=== PATIENT | male | born 1960 | race Caucasian/White ===

== ENCOUNTER 2019-07-24 12:21 | Emergency (ER) | payer OTHER ==
[~2019-07-24] VITALS: Ht 188 cm; Wt 106.1 kg
[2019-07-24 12:27] VITALS: Ht 188 cm; Wt 106.1 kg
[2019-07-24 13:28] LABS: BASOPHIL % 0.4 % (0-2); PLATELET COUNT 289 x10^3mcL (130-400); RED CELL DISTRIBUTION WIDTH 13.4 % (11.5-14.5)
[2019-07-24 14:37] LABS: ALKALINE PHOSPHATASE 61 U/L (46-116); ALT/SGPT 26 U/L (16-63); AST/SGOT 14 U/L (15-37); BILIRUBIN TOTAL 0.3 mg/dL (0.20-1.00); CALCIUM 8.5 mg/dL (8.5-10.1); CARBON DIOXIDE 24.4 mmol/L (21-32); CHLORIDE SERUM 106 mmol/L (98-107); CREATININE SERUM 1.1 mg/dL (0.7-1.3); GFR1 > 60 mL/min; GLUCOSE SERUM 108 mg/dL (74-106); POTASSIUM SERUM 4.2 mmol/L (3.5-5.1); SODIUM SERUM 141 mmol/L (136-145); TOTAL PROTEIN, SERUM 7.3 g/dL (6.4-8.2)
[2019-07-24 14:39] LABS: ALBUMIN 3.3 g/dL (3.4-5.0)
[2019-07-24 14:55] VITALS: BP 122/79
== END 2019-07-24 14:55 | disposition home or self-care (01) ==
LOC: ED 12:21
PROVIDERS: Emergency Medicine
DX: F41.1 Generalized anxiety disorder (principal); E78.00 Pure hypercholesterolemia, unspecified
CPT/HCPCS: 36600; J2060; Q0092